=== PATIENT | female | born 1965 | race Caucasian/White ===

== ENCOUNTER 2016-09-07 09:30 | Emergency (ER) | payer SELFPAY ==
[~2016-09-07] VITALS: Ht 167.6 cm; Wt 90.0 kg
[~2016-09-07 09:30] MED LIST: SULF1TAB47 PO; TYLE3 PO
[2016-09-07 09:33] VITALS: BP 150/73; PULSE 83; RESP 15; TEMP 98; O2SAT 99
[2016-09-07] MEDS ORDERED: PROZ20CA11 PO (09:58)
[2016-09-07] MEDS ORDERED: NAPR500T PO (10:21)
[2016-09-07] MEDS ORDERED: AUGM875T PO (10:21)
--- NOTE | 2016-09-07 10:24 | PD ---
HPI Chief Complaint: Bite or Sting Time Seen by Provider: 10:21 Travel History International Travel<30 days: No Contact w/Intl Traveler<30days: No Traveled to known affect area: No History of Present Illness HPI 51-year-old female presents to the emergency department for evaluation of dog bite wounds to right wrist. Patient states that her 2 dogs were fighting over a toy and she attempted to pull them apart and one of her dogs bit her on the right wrist. States that both of her dogs are up-to-date on their vaccinations. She is complaining of pain in her wrist and pain shooting from her wrist to her elbow. She denies any fever, chills, nausea, vomiting, numbness or tingling, weakness. She did wash the wounds already at home. States her last tetanus vaccination was 13 years ago. No other complaints. PFSH Past Medical History Arthritis: Yes Blood Disorders: No Depression: Yes Cancer: No High Cholesterol: Yes Chemotherapy: No Diabetes: No Diminished Hearing: No Endocrine: No Glaucoma: No Genitourinary: No Hepatitis: No Hiatal Hernia: No Hypertension: No Musculoskeletal: No Neurologic: No Reproductive: No Respiratory: No Radiation Therapy: No Thyroid Disease: No ?: Not Menopausal: Yes : 5 Para: 2 Miscarriage: 3 Ectopic : Yes Tubal Ligation: Yes Past Surgical History Abdominal Surgery: No AICD: No Arteriovenous Shunt: No Cardiac Surgery: No Section: Yes Ear Surgery: No Endocrine Surgery: No Eye Surgery: No Genitourinary Surgery: No Gynecologic Surgery: Yes (TUBAL [id number] X2) Insulin Pump: No Joint Replacement: No Oral Surgery: No Pacemaker: No Thoracic Surgery: No Social History Alcohol Use: No Tobacco Use: Yes (STS 2 CIGARETTES PER DAY) Substance Use: No Allergies-Medications (Allergen,Severity, Reaction): Coded Allergies: Latex (Verified Allergy, Mild, RASH, 09/07/16) Reported Meds & Prescriptions Reported Meds & Active Scripts Active Naproxen 500 Mg Tab 500 Mg PO BID 7 Days Augmentin (Amoxicillin-Clavulanate) 875-125 mg Tab 875 Mg PO BID 10 Days not for use in CrCl <30 ml/min. Reported Prozac (Fluoxetine HCl) 20 Mg Cap 20 Mg PO DAILY Review of Systems Except as stated in HPI: all other systems reviewed are Neg Physical Exam Narrative GENERAL: Well-nourished and well-developed pleasant female patient in no acute distress who is nontoxic appearing. SKIN: Warm and dry. HEAD: Normocephalic and atraumatic. EYES: No injection, drainage, or hyphema noted. PERRLA. EOMI. ENT: No nasal drainage noted. Oropharynx is clear. NECK: Supple and the trachea is midline. CARDIOVASCULAR: Regular rate and rhythm. RESPIRATORY: Breath sounds are equal bilaterally with no accessory muscle use, wheezing, rhonchi, or crackles. EXTREMITY: 2 puncture wounds to dorsal ulnar aspect of the wrist and 2 puncture wounds to the volar ulnar aspect of the wrist. Full range of motion in all joints. No joint swelling/injury. Normal opposition of thumb. Distal extremity neurovascularly intact with intact two point discrimination. NEUROLOGICAL: Awake, alert, and oriented. Normal speech and gait. Cranial nerves are grossly intact. Data Data Last Documented VS Vital Signs Date Time Temp Pulse Resp B/P Pulse Ox O2 Delivery O2 Flow Rate FiO2 09/07/16 09:33 98.0 83 15 150/73 99 Orders Wrist, Complete ([id number]) (09/07/16 10:18) Ice/Cold Pack (09/07/16 10:18) Acetaminophen (Tylenol) (09/07/16 10:30) Wound Care (09/07/16 10:18) Tetanus/Diphtheria Tox Adult (Tetanus/Di (09/07/16 10:30) MDM Medical Decision Making Medical Screen Exam Complete: Yes Emergency Medical Condition: Yes Differential Diagnosis Dogbite wounds versus puncture wound versus retained foreign body Narrative Course 51-year-old female presents to the emergency department for evaluation of dog bite wounds to right wrist. Patient is afebrile, vital signs are stable. The dog that bit her is her dog and is up-to-date on all of its immunizations. She has full range of motion in the wrist, there is a few puncture wounds. We'll do an x-ray to rule out retained foreign body. Tetanus vaccination is updated here in the ED. Patient will be discharged with Augmentin and naproxen. Discussed wound care techniques and when to return to the emergency Department. Advised follow-up with her PCP. Patient verbalizes understanding and agreement with treatment plan. X-ray of the right wrist is negative for any acute abnormalities. Patient stable for discharge. Referrals: Primary Care Physician Patient Instructions: Animal Bite (ED), General Instructions Additional Instructions: Keep wounds clean and dry. Take medications as prescribed with food and a full glass of water. Follow-up with your Primary Care Physician. Return to the ED for any acute worsening of symptoms. Med/Other Pt SpecificInfo: Prescription(s) given Scripts Naproxen 500 Mg [id number] Mg PO BID 7 Days Ref 0 Prov:Toshia Saldana MD 09/07/16 Amoxicillin-Clavulanate (Augmentin)875-125 mg [id number] Mg PO BID 10 Days Ref 0 not for use in CrCl <30 ml/min. Prov:Toshia Saldana MD 09/07/16 Disposition: 01 DISCHARGE HOME Condition: Stable Karina Healy Sep 07, 2016 10:24
[2016-09-07] MEDS ORDERED: TETANUS/DIPHTHERIA TOXOID ADULT 0.5 ML VIAL IM ONE (10:30)
[2016-09-07] MEDS ORDERED: ACETAMINOPHEN 500 MG CPLT PO ONE (10:30)
--- NOTE | 2016-09-07 11:19 | RADRPT ---
EXAM DATE/TIME: 09/07/2016 10:40 [facility] COMPARISON: No previous studies available for comparison. INDICATIONS : Laceration to posterior medial wrist status post bite from dog. Rule out foreign bodies. MEDICAL HISTORY : None. SURGICAL HISTORY : section. None. Joint replacement, thumb. Nasal bone repair. ENCOUNTER: Initial ACUITY: 1 day PAIN SCORE: 7/10 LOCATION: Right wrist. FINDINGS: Three view examination of the right wrist demonstrates no soft tissue swelling, dislocation, or fract ure. The trapezium has been resected. The carpal bones are in normal alignment. The joint spaces are maintained. Bony mineralization is normal. CONCLUSION: No foreign object is identified. The trapezium has been resected Hiram Du MD on September 07, 2016 at 11:17 Board Certified Radiologist. This report was verified electronically.
== END 2016-09-07 12:23 | disposition home or self-care (01) ==
LOC: NEPB 09:30
DX: S61.551A Open bite of right wrist, initial encounter (principal); E78.00 Pure hypercholesterolemia, unspecified; F32.9 Major depressive disorder, single episode, unspecified; W54.0XXA Bitten by dog, initial encounter; Y93.89 Activity, other specified; Y92.89 Other specified places as the place of occurrence of the external cause; Y99.8 Other external cause status; Z23 Encounter for immunization
CPT/HCPCS: 73110; 90471; 90714

== ENCOUNTER 2018-01-19 05:34 | Emergency (ER) | payer SELFPAY ==
[~2018-01-19 05:34] MED LIST changes: +AUGM875T PO; +NAPR500T2 PO; +PROZ20CA11 PO; -SULF1TAB47 PO; -TYLE3 PO
[2018-01-19 05:35] VITALS: BP 129/80; PULSE 94; RESP 18; TEMP 97.5; O2SAT 96
[2018-01-19] MEDS ORDERED: DEXAMETHASONE SOD PHOS 20 MG/5 ML VIAL IM ONE (06:00)
[2018-01-19] MEDS ORDERED: LIDOCAINE HCL 5% PATCH T-DERMAL ONE (06:00)
[2018-01-19] MEDS ORDERED: KETOROLAC TROMETHAMINE 60 MG/2 ML (IM) VIAL IM ONE (06:00)
[2018-01-19] MEDS ORDERED: ORPHENADRINE INJ 60 MG/2 ML AMP IM ONE (06:00)
[2018-01-19] MEDS ORDERED: PRED50 PO (06:21)
[2018-01-19] MEDS ORDERED: CYCL10TA PO (06:21)
[2018-01-19] MEDS ORDERED: KETO10 PO (06:21)
--- NOTE | 2018-01-19 06:22 | PD ---
HPI Chief Complaint: Pain: Acute or Chronic Time Seen by Provider: 05:47 Travel History International Travel<30 days: No Contact w/Intl Traveler<30days: No Traveled to known affect area: No History of Present Illness HPI Patient is a 52-year-old female presented to emerge from for evaluation of right lower back pain that radiates down her right leg. Patient states it started 2 weeks ago, there was no preceding injury or trauma. She denies any numbness or weakness in extremities, no saddle paresthesia, no incontinence of her bladder or bowels. Patient states she has been taking Aleve and ibuprofen, she took a hydrocodone that was her daughter's last night at 8 PM with no improvement. 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 She presents today because she states the pain has gotten worse and she cannot sleep. Symptom onset was gradual, symptoms are moderate in nature. There are no obvious alleviating factors at this time, pain is exacerbated with positional changes, symptoms are constant. PFSH Past Medical History Arthritis: Yes Depression: Yes High Cholesterol: Yes Musculoskeletal: Yes (SCIATICA) Immunizations Current: Yes ?: Not Menopausal: Yes : 5 Para: 2 Miscarriage: 3 Ectopic : Yes Tubal Ligation: Yes Past Surgical History Abdominal Surgery: No AICD: No Arteriovenous Shunt: No Cardiac Surgery: No Section: Yes Ear Surgery: No Endocrine Surgery: No Eye Surgery: No Genitourinary Surgery: No Gynecologic Surgery: Yes (TUBAL [id number] X2) Insulin Pump: No Joint Replacement: No Oral Surgery: No Pacemaker: No Thoracic Surgery: No Social History Alcohol Use: No Tobacco Use: Yes (1PPD) Substance Use: Yes (WEED) Allergies-Medications (Allergen,Severity, Reaction): Coded Allergies: latex (Unverified Allergy, Mild, RASH, 01/19/18) Reported Meds & Prescriptions Reported Meds & Active Scripts Active Ketorolac (Ketorolac Tromethamine) 10 Mg Tab 10 Mg PO TID PRN 10 Days Prednisone 50 Mg Tab 50 Mg PO DAILY 5 Days Flexeril (Cyclobenzaprine HCl) 10 Mg Tab 10 Mg PO TID PRN Naproxen 500 Mg Tab 500 Mg PO BID 7 Days Reported Prozac (Fluoxetine HCl) 20 Mg Cap 20 Mg PO DAILY Review of Systems Except as stated in HPI: all other systems reviewed are Neg Musculoskeletal: Positive: Myalgias, Cramping, Pain Physical Exam Narrative GENERAL: Well-developed, well-nourished, alert female. Appears uncomfortable, no acute distress. SKIN: Warm and dry. HEAD: Atraumatic. Normocephalic. EYES: Pupils equal and round. No scleral icterus. No injection or drainage. ENT: No nasal bleeding or discharge. Mucous membranes pink and moist. NECK: Trachea midline. No JVD. CARDIOVASCULAR: Regular rate and rhythm. RESPIRATORY: No accessory muscle use. Clear to auscultation. Breath sounds equal bilaterally. GASTROINTESTINAL: Abdomen soft, non-tender, nondistended. Hepatic and splenic margins not palpable. MUSCULOSKELETAL: Extremities without clubbing, cyanosis, or edema. No obvious deformities. Mild tenderness to palpation over the right SI joint. No spinal tenderness or step-off noted. NEUROLOGICAL: Awake and alert. No obvious cranial nerve deficits. Motor grossly within normal limits. Five out of 5 muscle strength in the arms and legs. Normal speech. PSYCHIATRIC: Appropriate mood and affect; insight and judgment normal. Data Data Last Documented VS Vital Signs Date Time Temp Pulse Resp B/P (MAP) Pulse Ox O2 Delivery O2 Flow Rate FiO2 01/19/18 05:35 97.5 94 18 129/80 (96) 96 Orders Orders Ketorolac Inj (Toradol Inj) (01/19/18 06:00) Orphenadrine Inj (Norflex Inj) (01/19/18 06:00) Dexamethasone Inj (Decadron Inj) (01/19/18 06:00) Lidocaine 5% Patch.12 Hr (Lidoderm 5% Pa (01/19/18 06:00) MDM Medical Decision Making Medical Screen Exam Complete: Yes Emergency Medical Condition: Yes Interpretation(s) Vital Signs Date Time Temp Pulse Resp B/P (MAP) Pulse Ox O2 Delivery O2 Flow Rate FiO2 01/19/18 05:35 97.5 94 18 129/80 (96) 96 Differential Diagnosis Sciatica versus muscle strain versus muscle spasm versus radiculopathy versus other Narrative Course Patient is a 52-year-old female presenting for evaluation of sciatica. Patient has no focal deficits on exam. She will be given medications to attempt to alleviate her symptoms. Will reassess. 0630 patient was reassessed, she reports improvement in her pain. She was encouraged to follow-up at the [facility]. She was encouraged to continue range of motion exercises, avoid bed rest, avoid exacerbating activities. She is encouraged return to emergency department for any new or worsening symptoms. Patient is stable for discharge. Diagnosis Primary Impression: Sciatica Qualified Codes: M54.31 - Sciatica, right side Referrals: [facility] Patient Instructions: General Instructions, Sciatica (ED) Additional Instructions: Follow-up with a primary doctor or at the [facility]. If you call the [facility] at 8 AM in the morning they except 12 walk- in appointments a day Avoid bed rest, avoid exacerbating activities, apply warm heat to the affected area, continue range of motion exercises Take medications as directed Return to emergency department for any new or worsening symptoms Do not take ketorolac, ibuprofen, Aleve at the same time. These are the same class of medications and can result in toxicity. Med/Other Pt SpecificInfo: Prescription(s) given Scripts Lidocaine (Lidoderm) 5 % Adh..patch 1 PATCH TOPICAL DAILY Y for PAIN SCALE 1 TO 10 for 14 Days Prov: Babs Pritchett 01/19/18 Ketorolac (Ketorolac) 10 Mg Tab 10 MG PO TID Y for Pain Management for 10 Days, TAB 0 Refills Prov: Babs Pritchett 01/19/18 Prednisone (Prednisone) 50 Mg Tab 50 MG PO DAILY for 5 Days, #5 TAB 0 Refills Prov: Babs Pritchett 01/19/18 Cyclobenzaprine (Flexeril) 10 Mg Tab 10 MG PO TID Y for MUSCLE SPASM, #30 TAB 0 Refills Prov: Babs Pritchett 01/19/18 Disposition: 01 DISCHARGE HOME Condition: Stable Babs Pritchett January 19, 2018 06:22
[2018-01-19] MEDS ORDERED: LIDO1ADH4 TOPICAL (06:30)
== END 2018-01-19 06:43 | disposition home or self-care (01) ==
LOC: NEPD 05:34
DX: M54.41 Lumbago with sciatica, right side (principal); F12.90 Cannabis use, unspecified, uncomplicated; F17.200 Nicotine dependence, unspecified, uncomplicated; F32.9 Major depressive disorder, single episode, unspecified
CPT/HCPCS: 96372; 99283; J1100; J1885; J2360